=== PATIENT | female | born 1965 | race Hispanic/Latino ===

== ENCOUNTER 2022-01-23 17:18 | Emergency (ER) | payer OTHER ==
[~2022-01-23] VITALS: Ht 162.6 cm; Wt 70.8 kg
[2022-01-23] MEDS ORDERED: NAPR375T6 PO (18:47)
[2022-01-23 18:49] VITALS: BP 112/68
== END 2022-01-23 18:56 | disposition home or self-care (01) ==
LOC: EDH 17:18
DX: S90.31XA Contusion of right foot, initial encounter (principal); E11.9 Type 2 diabetes mellitus without complications; I10 Essential (primary) hypertension; E78.00 Pure hypercholesterolemia, unspecified; X50.1XXA Overexertion from prolonged static or awkward postures, initial encounter; Y93.89 Activity, other specified; Y92.89 Other specified places as the place of occurrence of the external cause; Y99.8 Other external cause status
CPT/HCPCS: 73630

== ENCOUNTER 2022-05-05 17:32 | Emergency (ER) | payer OTHER ==
[~2022-05-05] VITALS: Ht 162.6 cm; Wt 78.0 kg
[~2022-05-05 17:32] MED LIST: NAPR375T6 PO
[2022-05-05 17:43] VITALS: BP 122/76
[2022-05-05] MEDS ORDERED: D-ME118S47 PO (20:34)
[2022-05-05] MEDS ORDERED: AZIT250T9 PO ×2 (20:34→20:35)
[2022-05-05] MEDS ORDERED: BENZ200C53 PO (20:34)
[2022-05-05] MEDS ORDERED: GUAI400T94 PO (20:34)
[2022-05-05] MEDS ORDERED: ALBU90AE2 IH (20:34)
[2022-05-05] MEDS ORDERED: AUD IH (20:46)
== END 2022-05-05 20:46 | disposition home or self-care (01) ==
LOC: EDH 17:32
DX: J20.9 Acute bronchitis, unspecified (principal); E11.9 Type 2 diabetes mellitus without complications; E78.00 Pure hypercholesterolemia, unspecified; I10 Essential (primary) hypertension; Z79.1 Long term (current) use of non-steroidal anti-inflammatories (NSAID); Z90.49 Acquired absence of other specified parts of digestive tract; Z20.822 Contact with and (suspected) exposure to COVID-19; Z90.710 Acquired absence of both cervix and uterus
CPT/HCPCS: 99285; 71045; 87635; 87880; 87804 ×2; 93005; C9803